=== PATIENT | female | born 1985 | race Hispanic/Latino ===

== ENCOUNTER 2024-07-20 11:54 | Emergency (ER) | payer SELFPAY ==
[2024-07-20 12:01] VITALS: BP 145/64; PULSE 108; RESP 18; TEMP 36.8; O2SAT 94; BMI 34.5
[2024-07-20] MEDS: ALBUTEROL/IPRATROPIUM 3 ML AMPUL INH (12:45)
[2024-07-20 12:46] VITALS: PULSE 106; RESP 18; O2SAT 96
--- NOTE | 2024-07-20 13:04 | ED_ITS ---
HPI - General Adult General Chief complaint: Upper Respiratory Symptoms Stated complaint: Cold. cough Time Seen by Provider: 07/20/24 12:39 Source: guest service aide Mode of arrival: Ambulatory Limitations: language barrier History of Present Illness HPI narrative: Pt is a 38 y/o f, 33 weeks , presenting with cough and shortness of breath. States that these symptoms have been going on for approx 1 month. No ac iliamna worsening of symptoms on day of presentation. States she was evaluated previously at [facility] on 07/09 and prescribed a duoneb which she had been using and was effective at improving her symptoms, however she has run out. She also states that she has developed some minor nosebleeds with use of the nebulizer. Patient denies diagnosis of asthma but states that she has been prescribed inhalers multiple times in the past for her breathing issues. Pt denies chest pain, no lightheadedness or syncope, no new abdominal pain, nausea or vomiting. Does endorse congestion and itchy sensation in her throat. Related Data Previous Rx's Medication Instructions Recorded albuterol sulfate 1.25 mg/3 mL 1.25 mg (3 mL) inhalation Q4-6H 07/20/24 solution for nebulization PRN shortness of breath or wheezing #75 mL albuterol sulfate 1.25 mg/3 mL 1.25 mg (3 mL) inhalation Q4-6H 07/20/24 solution for nebulization PRN shortness of breath or wheezing #75 mL prednisone 20 mg tablet 20 mg PO DAILY #7 tabs 07/20/24 prednisone 20 mg tablet 20 mg PO DAILY #7 tabs 07/20/24 Allergies Allergy/AdvReac Type Severity Reaction Status Date / Time No Known Drug Allergies Allergy Verified 07/20/24 12:01 Review of Systems Constitutional Constitutional: Denies fever(s) and Denies weakness Eyes Eyes: Denies change in vision ENT Ears, Nose, Mouth, and Throat: Denies dizziness and Denies throat swelling Cardiovascular Cardiovascular: Denies chest pain and Denies lightheadedness Respiratory Respiratory: Reports chest congestion, Reports cough and Reports wheezing Gastrointestinal Gastrointestinal: Denies nausea and Denies vomiting Neurologic Neurologic: Denies dizziness and Denies weakness Allergic/Immunologic Allergic/Immunologic: Denies throat swelling and Reports wheezing Patient History Social History Smoking Status: Never smoker Smoking Status: Never smoker Exam Initial Vital Signs Initial Vital Signs: Vital Signs Temperature 98.3 F 07/20/24 12:01 Pulse Rate 108 H 07/20/24 12:01 Respiratory Rate 18 07/20/24 12:01 Blood Pressure 145/64 H 07/20/24 12:01 Pulse Oximetry 94 07/20/24 12:01 Oxygen Delivery Method Room Air 07/20/24 12:01 Const General: cooperative [facility] Head: normocephalic and atraumatic Face and sinus: sinuses nontender Mouth: moist mucous membranes Teeth and gingiva: dentition normal Throat: tonsils normal and uvula midline Eyes Conjunctivae: conjunctivae normal Resp Effort & Inspection: cough and no respiratory distress Auscultation: wheezes GI Palpation: No tender Neuro General: patient alert, patient oriented x3 and no focal motor deficits Extrem General: full ROM and no pedal edema Psych Appearance: well kempt Mental Status: mental status grossly normal Course Orders Ordered: Discontinued Medications Albuterol/Ipratropium (Albuterol/Ipratropium 3 Ml Ampul) 3 ml INH NOW ONE Stop: 07/20/24 12:42 Last Admin: 07/20/24 12:45 Dose: 3 ml Documented By: JULIÁN Prednisone (Prednisone 20 Mg Tablet) 40 mg PO NOW ONE Stop: 07/20/24 12:41 Last Admin: 07/20/24 13:05 Dose: 40 mg Documented By: MARVA Vital Signs Vital signs: Vital Signs - 8 hr 07/20/24 12:01 07/20/24 12:46 Temperature 98.3 F Pulse Rate 108 H 106 H Respiratory Rate 18 18 Blood Pressure 145/64 H Pulse Oximetry 94 96 Oxygen Delivery Method Room Air Room Air Oxygen Flow Rate 0 Fraction of Inspired Oxygen 21 Medical Decision Making [facility] Narrative Medical decision making narrative: After history and exam, presentation most likely with acute asthma exacerbation. We will plan for nebulizer treatment and steroids. Differential considered: Includes but not limited to asthma exacerbation, viral illness, pneumonia, unlikely to represent PE without pleuritic pain, no rhonchi suggestive of HF or pulmonary edema, no apparent complication with , suspect gravid abdomen is also contributing to patient's worsened overall shortness of breath. Given low suspicion for pneumonia without worsening cough or fever and no asymmetry on auscultation, will defer xray imaging. Consultations: respiratory therapy for duoneb Re-evaluations: patient with improved respirations on rpt evaluation, plan for discharge with short course of steroids and further nebulizer treatments. Counseled regarding importance of follow up for management of underlying asthma given recurrent exacerbations. Discharge Plan Departure Patient Disposition: Home Clinical Impression: Asthma exacerbation Instructions: DI for Asthma -- Adult Activity Restrictions/Additional Instructions: You were seen in the emergency department for your shortness of breath. This is likely due to an asthma exacerbation. You are being prescribed additional nebulizer treatments as well as steroids to take for further management. Please follow-up closely with your primary care provider for re-evaluation and management of this likely chronic issue. If you develop worsening shortness of breath, chest pain, lightheadedness, fevers or other symptoms that are concerning to you, please return to the emergency department for further evaluation. Prescriptions: New prednisone 20 mg tablet 20 mg PO DAILY Qty: 7 0RF albuterol sulfate 1.25 mg/3 mL solution for nebulization 1.25 mg inhalation Q4-6H PRN (Reason: shortness of breath or wheezing) Qty: 75 0RF prednisone 20 mg tablet 20 mg PO DAILY Qty: 7 0RF albuterol sulfate 1.25 mg/3 mL solution for nebulization 1.25 mg inhalation Q4-6H PRN (Reason: shortness of breath or wheezing) Qty: 75 0RF Stand Alone Forms: Patient Portal/API/Survey
[2024-07-20] MEDS: predniSONE 20 MG TABLET 40 MG PO (13:05)
[2024-07-20 14:33] VITALS: BP 129/62; PULSE 112; RESP 14; O2SAT 94
== END 2024-07-20 14:33 | disposition home or self-care (01) ==
PROVIDERS: Emergency Provider Student in an Organized Health Care Education/Training Program
DX: O99.513 Diseases of the respiratory system complicating pregnancy, third trimester (principal); J45.901 Unspecified asthma with (acute) exacerbation; Z3A.33 33 weeks gestation of pregnancy
CPT/HCPCS: 94640; 99283